=== PATIENT | male | born 1940 | race Caucasian/White ===

== ENCOUNTER → 2017-01-22 | Outpatient (CLI) | payer MEDICARE, BC ==
[~2017-01-22] MED LIST: ALDACTONE25 MG PO; BRILINTA90 MG PO; BYSTOLIC10 MG PO; CENTRUM COMPLE1 EACH PO; CHILDREN'S CHEW81 MG PO; COZAAR100 MG PO; CPAP; DELTASONE10 MG PO; DELTASONE20 MG PO; DELTASONE5 MG PO; LASIX40 MG PO; LEVAQUIN250 MG; LIPITOR40 MG PO; MIRALAX17 GM PO; MUCINEX DM ER1 EACH PO; NITROSTAT0.4 MG SL; PROAIR HFA8.5 GM INH; PROTONIX40 MG PO; PROVENTIL HFA6.7 GM INH; SYMBICORT 16010.2 GM INH; TYLENOL EXTRA500 MG PO; XARELTO20 MG PO; ZYRTEC10 M3 PO
--- NOTE | ~2017-01-22 | ESTC ---
Cardiac Perfusion Imaging Demographics Patient Name KEY Salgado Gender Male Patient Number [id number] Race Visit Number [id number] Ethnicity [employer] ID Room Number Accession Number [id number] Height 68 inches Date of 1940 Weight 294 pounds Interpreting Jonas Saavedra MD Date of study 01/22/2017 Physician Supervising /JEFFERY Montez [place] Technologist Rudy Bourgeois APRN Ordering Physician Stress restoration technician Stress ECG Reading Willis Montez Nurse Judy Rodriguez RN Physician REI The procedure was explained in detail to the patient. Risks, complications and alternative treatments were reviewed. Written consent was obtained. Medications Reviewed with Patient prior to Procedure. Procedure Admit Source:Other. Procedure Type: Nuclear Stress Test:Pharmacological, Lexiscan, Cardiolite Stress Test Procedure Start time: 01/22/2017 08:52 End time: 01/22/2017 09:05 Indications: Shortness of Breath with Exertion. Risk Factors The patient risk factors include:prior PCI;obesity, treated hypertension and chronic lung disease. Conclusions Summary Cardiolite SPECT images demonstrate homogenous uptake of radioactive tracer. No evidence of inducible reversible defect and no evidence of underlying fixed defect. Normal TID ratio of 0.95 Gated images demonstrate normal left ventricular systolic function without wall motion abnormalities. LVEF is 64% Stress Protocols Resting ECG RSR without ST or T wave change. Resting HR:63 bpm Resting BP:138/73 mmHg Pre-stress physical exam: Complains of shortness of breath with activity. Stress Protocol:Pharmacologic Peak HR:76 bpm HR response: Appropriate Predicted HR: 146 bpm BP response: Appropriate % of predicted HR: 52 Reason for termination:Infusion complete ECG Findings No ECG changes suggestive of ischemia. Arrhythmias No rhythm abnormality. Symptoms Complains of shortness of breath with the Lexiscan. Noted chest tightness. Stress Interpretation Appropriate hemodynamic response to Lexiscan. No significant ST-T wave changes with Lexiscan. ECG portion is negative for ischemia by diagnostic criteria. Stress supervision and interpretation provided by Greta Pedro APRN . Imaging Results Summed scores - Summed stress score: 0 - Summed rest score: 0 - Summed difference score: 0 Stress ejection Ejection fraction:64 % EDV :151 ml ESV :55 ml Stroke volume :96 ml LV mass :151 gr Imaging Protocols Rest Stress Isotope:Tc99m Sestamibi IV Isotope: Tc99m Sestamibi IV Isotope dose:16 mCi Isotope dose:49 mCi Date:01/22/2017 07:03 Date:01/22/2017 08:57 Technique: SPECT Technique: Gated Supine SPECT Supine Scan Time:45-60 minutes post Scan Time:45-60 minutes post injection injection Procedure Medications - Regadenoson (Lexiscan) 0.4 mg IV over 10-15 sec. I.V. 0.4 mg. Medications administered per verbal order and read back to physician prior to administration. Medical History Admission Data Admission date: 01/22/2017 Admission Time: 06:41 Hospital Status: Outpatient. Signatures dtt: Quentin Mcdaniel (cardio) dtd: 01/22/17 0852 Physician Self Edit
== END | disposition disaster alternative care site (69) ==
LOC: GRAD 06:41
DX: R06.02 Shortness of breath (principal); E66.9 Obesity, unspecified; I10 Essential (primary) hypertension; J98.4 Other disorders of lung; Z98.61 Coronary angioplasty status
CPT/HCPCS: A9500; J2785

== ENCOUNTER → 2017-02-28 | Outpatient (CLI) | payer MEDICARE, BC | LOC: LGSMG 12:20 | DX: R05 Cough (principal); J44.1 Chronic obstructive pulmonary disease with (acute) exacerbation ==